=== PATIENT | male | born 1955 | race African-American/Black ===

== ENCOUNTER 2018-04-28 10:18 | Emergency (ER) | payer OTHER ==
[~2018-04-28] VITALS: Ht 167.6 cm; Wt 73.0 kg
[~2018-04-28 10:18] MED LIST: ALBU18HF2 INH; ASPI-1158 PO; BUSP5TAB3 PO; FOLI-43 PO; HYDR12.529 PO; LORA10TA7 PO; METO-293 PO; NAPR-681 PO; OMEP40CA34 PO; PROM12.511 PO; TIOT18CA3 PO
[2018-04-28 10:26] VITALS: BP 148/95
== END 2018-04-28 17:59 | disposition left against medical advice (07) ==
LOC: ER 14:46
DX: Z53.21 Procedure and treatment not carried out due to patient leaving prior to being seen by health care provider (principal)

== ENCOUNTER 2018-06-24 18:55 | Emergency (ER) | payer OTHER ==
[~2018-06-24] VITALS: Ht 170.2 cm; Wt 75.0 kg
[2018-06-24] MEDS ORDERED: ALBUTEROL (0.083%) 2.5MG/3ML NEB HHN STA (19:23)
[2018-06-24] MEDS ORDERED: SODIUM CHLORIDE 0.9% 1,000 ML IV ONE (19:23)
[2018-06-24] MEDS ORDERED: IPRATROPIUM BROMIDE (0.02%) 0.5MG/2.5ML NEB HHN STA (19:23)
[2018-06-24] MEDS ORDERED: ONDANSETRON HCL 4MG/2ML INJ IV ONE (19:30)
[2018-06-24 20:21] LABS: HEMATOCRIT. 44.6 % (42.0-52.0); HEMOGLOBIN. 15.7 g/dL (14.0-18.0); MEAN CORPUSCULAR HEMOGLOBIN 31.1 pg (28.0-32.0); MEAN CORPUSCULAR VOLUME 88.7 fL (80.0-94.0); MEAN PLATELET VOLUME 8.3 fl (7.4-10.4); PLATELET 92 x1000/uL (130-400); RED BLOOD CELL COUNT 5.03 mill/uL (4.7-6.1); RED CELL DISTRIBUTION WIDTH 13.1 % (11.6-14.6)
[2018-06-24 20:22] LABS: CHLORIDE 101 mEq/L (98-107)
[2018-06-24 20:26] LABS: ETHANOL BLOOD < 10 mg/dL
[2018-06-24 20:41] LABS: NUCLEATED RED BLOOD CELLS 1 /100 WBC; PLATELET ESTIMATE DECREASED
[2018-06-24 21:20] VITALS: BP 156/89
== END 2018-06-24 21:22 | disposition home or self-care (01) ==
LOC: ER 19:02
DX: J06.9 Acute upper respiratory infection, unspecified (principal); R11.10 Vomiting, unspecified; F17.200 Nicotine dependence, unspecified, uncomplicated; K21.9 Gastro-esophageal reflux disease without esophagitis; Z79.82 Long term (current) use of aspirin; Z79.899 Other long term (current) drug therapy
CPT/HCPCS: 36415; 71045; 80053; 83605; 83690; 83880; 84484; 85025; 87804; 93005; 94640; 96361; 96374; 99284; 99406; G0482; J2405; J7030; J7611

== ENCOUNTER 2018-06-26 18:04 | Emergency (ER) | payer OTHER ==
[~2018-06-26] VITALS: Ht 175.3 cm; Wt 71.0 kg
[2018-06-26] MEDS ORDERED: ALBUTEROL (0.083%) 2.5MG/3ML NEB HHN STA (18:48)
[2018-06-26] MEDS ORDERED: PREDNISONE 20MG TABLET PO STA (18:48)
[2018-06-26] MEDS ORDERED: IPRATROPIUM BROMIDE (0.02%) 0.5MG/2.5ML NEB HHN STA (18:48)
[2018-06-26 21:26] LABS: HEMATOCRIT. 43.4 % (42.0-52.0); MEAN CORPUSCULAR HEMOGLOBIN 30.5 pg (28.0-32.0); MEAN CORPUSCULAR VOLUME 88.1 fL (80.0-94.0); PLATELET 88 x1000/uL (130-400); RED BLOOD CELL COUNT 4.92 mill/uL (4.7-6.1); RED CELL DISTRIBUTION WIDTH 13.5 % (11.6-14.6)
[2018-06-26 21:48] LABS: PLATELET ESTIMATE DECREASED
[2018-06-27] VITALS: BP 143/83
== END 2018-06-27 00:04 | disposition home or self-care (01) ==
LOC: ER 18:04
DX: J20.9 Acute bronchitis, unspecified (principal); J44.9 Chronic obstructive pulmonary disease, unspecified; I50.9 Heart failure, unspecified; Z79.82 Long term (current) use of aspirin; Z79.899 Other long term (current) drug therapy
CPT/HCPCS: 36415; 71045; 83605; 83880; 84145; 84484; 85025; 87040; 93005; 99284; J7512

== ENCOUNTER 2018-06-27 22:59 | Emergency (ER) | payer OTHER ==
[~2018-06-27] VITALS: Ht 175.3 cm; Wt 66.0 kg
[2018-06-28] MEDS ORDERED: CHLORPROMAZINE HCL 25 MG TABLET PO ONE (01:00)
[2018-06-28 01:45] LABS: BASOPHILS % 0.5 % (0.0-2.0); HEMATOCRIT. 41.5 % (42.0-52.0); HEMOGLOBIN. 14.8 g/dL (14.0-18.0); LYMPHOCYTES % 15.4 % (20.0-50.0); MEAN CORPUSCULAR HEMOGLOBIN 31.3 pg (28.0-32.0); MEAN CORPUSCULAR VOLUME 87.7 fL (80.0-94.0); MEAN PLATELET VOLUME 7.9 fl (7.4-10.4); NEUTROPHILS % 73.1 % (40.0-76.0); PLATELET 140 x1000/uL (130-400); RED BLOOD CELL COUNT 4.74 mill/uL (4.7-6.1); RED CELL DISTRIBUTION WIDTH 13.2 % (11.6-14.6)
[2018-06-28 01:50] LABS: CHLORIDE 99 mEq/L (98-107)
[2018-06-28 05:36] VITALS: BP 122/74
== END 2018-06-28 05:49 | disposition home or self-care (01) ==
LOC: ER 22:59
DX: J02.8 Acute pharyngitis due to other specified organisms (principal); R06.6 Hiccough; I50.9 Heart failure, unspecified; J44.9 Chronic obstructive pulmonary disease, unspecified; Z79.82 Long term (current) use of aspirin
CPT/HCPCS: 36415; 71045; 83880; 84484; 93005; 99284; Q0161

== ENCOUNTER 2018-06-30 21:26 | Inpatient (IN) | payer OTHER ==
[~2018-06-30] VITALS: Ht 170.2 cm; Wt 68.2 kg
[2018-06-30] MEDS ORDERED: METHYLPREDNISOLONE SOD SUCC 125 MG/2 ML VIAL IV STA (21:31)
[2018-06-30] MEDS ORDERED: MAGNESIUM 2 G PREMIX 50 ML IV ONE (21:45)
[2018-06-30] MEDS ORDERED: LEVOFLOXACIN 750MG PREMIX 150 ML IV ONE (21:45)
[2018-06-30] MEDS ORDERED: IPRATROPIUM/ALBUTEROL 0.5-3(2.5)MG/3ML NEB HHN ONE (21:45)
[2018-06-30 22:47] LABS: BG BASE EXCESS -1.3 mmol/L (-2.0-2.0); BG BILEVEL POS AIRWAY PRESSURE 15/5; BG CARBOXYHEMOGLOBIN 2.6 % (0.5-1.5); BG DEOXYHEMOGLOBIN 0.4 % (0.0-5.0); BG FRACTION INSPIRED OXYGEN 100; BG HCO3 ACT 22.9 mmol/L (22.0-26.0); BG METHEMOGLOBIN 0.5 % (0.0-1.5); BG OXYGEN SATURATION 99.6 % (92.0-98.5); BG OXYHEMOGLOBIN 96.5 % (94.0-97.0); BG PCO2 36.9 mmHg (35.0-45.0); BG PO2 564.2 mmHg (75.0-100.0); BG SAMPLE SITE RIGHT BRACHIAL; BG TOTAL HEMOGLOBIN 15.9 g/dL (12.0-18.0); BG VENT MODE MASK - BIPAP
[2018-07-01] VITALS (11 sets, daily range): BP systolic 112–136; BP diastolic 67–81
[2018-07-01] LABS: BASOPHILS % 0.5 % (0.0-2.0); EOSINOPHILS % 1.6 % (0.0-5.0); HEMOGLOBIN. 15.8 g/dL (14.0-18.0); LYMPHOCYTES % 13.1 % (20.0-50.0); MEAN CORPUSCULAR HEMOGLOBIN 30.7 pg (28.0-32.0); MEAN CORPUSCULAR VOLUME 89.6 fL (80.0-94.0); MEAN PLATELET VOLUME 7.4 fl (7.4-10.4); MONOCYTES % 3.9 % (2.0-8.0); NEUTROPHILS % 80.9 % (40.0-76.0); PLATELET 191 x1000/uL (130-400); RED BLOOD CELL COUNT 5.14 mill/uL (4.7-6.1)
[2018-07-01 00:09] LABS: CHLORIDE 99 mEq/L (98-107)
[2018-07-01 00:11] LABS: INR 1.1; PARTIAL THROMBOPLASTIN TIME 26.7 sec (23.4-31.0); PROTHROMBIN TIME 10.6 sec (9.1-11.1)
[2018-07-01 00:13] LABS: ETHANOL BLOOD < 10 mg/dL
[2018-07-01] MEDS ORDERED: HYDROCODONE/ACETAMINOPHEN 10/325MG TABLET PO PRN ×2 (02:30→02:45)
[2018-07-01] MEDS ORDERED: NA PHOS,M-B/NA PHOS,DI-BA ENEMA 118ML PR PRN ×2 (02:30→02:45)
[2018-07-01] MEDS ORDERED: GUAIFENESIN 200MG/10ML SUGAR FREE UDC PO PRN ×2 (02:30→02:45)
[2018-07-01] MEDS ORDERED: DOCUSATE SODIUM 100MG CAPSULE PO PRN ×2 (02:30→02:45)
[2018-07-01] MEDS ORDERED: ENOXAPARIN 40MG/0.4ML SYR SUBCUT SCH (02:30)
[2018-07-01] MEDS ORDERED: ACETAMINOPHEN 325MG TABLET PO PRN ×2 (02:30→02:45)
[2018-07-01] MEDS ORDERED: MORPHINE SULFATE 2 MG/ML CPJ (NOT FOR IM USE) IV PRN (02:30)
[2018-07-01] MEDS ORDERED: LEVOFLOXACIN 500MG PREMIX 100 ML IV SCH ×3 (02:30→23:00)
[2018-07-01] MEDS ORDERED: ONDANSETRON HCL 4MG/2ML INJ IV PRN ×2 (02:30→02:45)
[2018-07-01] MEDS ORDERED: METHYLPREDNISOLONE SOD SUCC 125 MG/2 ML VIAL IV SCH (02:30)
[2018-07-01] MEDS ORDERED: CLONIDINE 0.1MG TABLET PO PRN ×2 (02:30→02:45)
[2018-07-01] MEDS ORDERED: MAGNESIUM/ALUMINUM HYDROXIDE/SIMETHICONE 30ML UDC PO PRN ×2 (02:30→02:45)
[2018-07-01] MEDS ORDERED: IPRATROPIUM/ALBUTEROL 0.5-3(2.5)MG/3ML NEB INH PRN ×2 (02:30→02:45)
[2018-07-01] MEDS ORDERED: LORAZEPAM 2MG/ML CPJ IV PRN ×2 (02:30→02:45)
[2018-07-01] MEDS ORDERED: MORPHINE SULFATE 10MG/5ML ORAL SOLN UDC PO PRN (02:45)
[2018-07-01] MEDS: METHYLPREDNISOLONE SOD SUCC 125 MG/2 ML VIAL IV SCH ×4 (06:00→23:03)
[2018-07-01] MEDS ORDERED: FUROSEMIDE 40MG/4ML VIAL IV SCH (09:00)
[2018-07-01] MEDS ORDERED: ASPIRIN 81MG EC TABLET PO SCH (09:00)
[2018-07-01] MEDS: ASPIRIN 81MG EC TABLET PO SCH (09:19)
[2018-07-01] MEDS: ENOXAPARIN 40MG/0.4ML SYR SUBCUT SCH (09:20)
[2018-07-01] MEDS: FUROSEMIDE 40MG/4ML VIAL IV SCH (09:20)
[2018-07-01 09:45] LABS: CHLORIDE 100 mEq/L (98-107)
[2018-07-01] MEDS: AMLODIPINE 2.5MG TABLET PO SCH (20:35)
[2018-07-02] VITALS (7 sets, daily range): BP systolic 109–134; BP diastolic 57–77
[2018-07-02] MEDS: METHYLPREDNISOLONE SOD SUCC 125 MG/2 ML VIAL IV SCH (05:25)
[2018-07-02 06:59] LABS: HEMATOCRIT. 42.6 % (42.0-52.0); HEMOGLOBIN. 14.5 g/dL (14.0-18.0); MEAN CORPUSCULAR HEMOGLOBIN 30.2 pg (28.0-32.0); MEAN CORPUSCULAR VOLUME 88.4 fL (80.0-94.0); MEAN PLATELET VOLUME 8.1 fl (7.4-10.4); PLATELET 269 x1000/uL (130-400); RED BLOOD CELL COUNT 4.82 mill/uL (4.7-6.1); RED CELL DISTRIBUTION WIDTH 13.1 % (11.6-14.6)
[2018-07-02 07:13] LABS: CHLORIDE 98 mEq/L (98-107)
[2018-07-02 07:25] LABS: CREATINE KINASE 46 IU/L (39-308)
[2018-07-02 07:27] LABS: CREATINE KINASE MB FRACTION 1.2 ng/mL (0.5-3.6)
[2018-07-02 07:31] LABS: LDL CHOLESTEROL 102 mg/dL (5-100)
[2018-07-02 07:38] LABS: HDL CHOLESTEROL 49 mg/dL (40-59)
[2018-07-02] MEDS: ENOXAPARIN 40MG/0.4ML SYR SUBCUT SCH (08:59)
[2018-07-02] MEDS: FUROSEMIDE 40MG/4ML VIAL IV SCH (08:59)
[2018-07-02] MEDS: ASPIRIN 81MG EC TABLET PO SCH (09:00)
[2018-07-02] MEDS: AMLODIPINE 2.5MG TABLET PO SCH (09:01)
[2018-07-02 13:34] LABS: PLATELET ESTIMATE NORMAL
== END 2018-07-02 13:20 | disposition home or self-care (01) | DRG 140 ==
LOC: ER 21:26 → 3WST 07-01 01:51 → EDBEDREQ 07-01 01:53 → EDBEDREQSVC 07-01 01:53 → ENRESERV 07-01 02:04 → ER 07-01 02:32
PROVIDERS: ADMIT Internal Medicine; ATTEND Internal Medicine
PROC: 5A09357 Assistance with Respiratory Ventilation, Less than 24 Consecutive Hours, Continuous Positive Airway Pressure (ICD-10-PCS; 2018-06-30)
PROC: 5A09357 Assistance with Respiratory Ventilation, Less than 24 Consecutive Hours, Continuous Positive Airway Pressure (ICD-10-PCS; principal; 2018-07-01)
DX: J44.0 Chronic obstructive pulmonary disease with (acute) lower respiratory infection (principal); J96.00 Acute respiratory failure, unspecified whether with hypoxia or hypercapnia; J69.0 Pneumonitis due to inhalation of food and vomit; J20.9 Acute bronchitis, unspecified; E87.6 Hypokalemia; F10.10 Alcohol abuse, uncomplicated; F17.210 Nicotine dependence, cigarettes, uncomplicated; I10 Essential (primary) hypertension; I25.10 Atherosclerotic heart disease of native coronary artery without angina pectoris; J44.1 Chronic obstructive pulmonary disease with (acute) exacerbation; I70.0 Atherosclerosis of aorta
CPT/HCPCS: 36415; 36600; 71045; 80048; 80061; 82375; 82550; 82553; 82805; 83605; 83735; 83880; 84443; 84484; 85379; 93005; 93306; 94640; 94660; 96365; 96366; 96368; 96375; 99291; G0482; J1650; J1940; J1956; J2930; J3475; J7050; J7620

== ENCOUNTER 2018-07-29 13:58 | Emergency (ER) | payer OTHER ==
[~2018-07-29] VITALS: Ht 170.2 cm; Wt 70.0 kg
[2018-07-29 14:03] VITALS: BP 146/86
== END 2018-07-29 17:40 | disposition left against medical advice (07) ==
LOC: ER 14:36
DX: R05 Cough (principal); Z53.21 Procedure and treatment not carried out due to patient leaving prior to being seen by health care provider

== ENCOUNTER 2019-05-04 13:40 | Inpatient (IN) | payer MEDICARE, OTHER ==
[~2019-05-04] VITALS: Ht 167.6 cm; Wt 73.2 kg
[~2019-05-04 13:40] MED LIST changes: -PROM12.511 PO; +PROM12.513 PO
[2019-05-04] MEDS ORDERED: ACETAMINOPHEN 325MG TABLET PO STA (14:14)
[2019-05-04] MEDS ORDERED: SODIUM CHLORIDE 0.9% 1000ML BAG (SEPSIS BOLUS) IV ONE (14:15)
[2019-05-04] MEDS ORDERED: VANCOMYCIN 1 G PREMIX 200 ML IV ONE (14:15)
[2019-05-04] MEDS ORDERED: PIPERACILLIN/TAZ 3.375G PREMIX 50 ML IV ONE (14:15)
[2019-05-04 15:13] LABS: HEMATOCRIT. 45.2 % (42.0-52.0); HEMOGLOBIN. 15.7 g/dL (14.0-18.0); MEAN CORPUSCULAR HEMOGLOBIN 31.3 pg (28.0-32.0); MEAN CORPUSCULAR VOLUME 90.4 fL (80.0-94.0); MEAN PLATELET VOLUME 8.5 fl (7.4-10.4); PLATELET 54 x1000/uL (130-400); RED CELL DISTRIBUTION WIDTH 12.8 % (11.6-14.6)
[2019-05-04 15:15] LABS: CHLORIDE 103 mEq/L (98-107); PROTHROMBIN TIME 10.7 sec (9.6-11.0)
[2019-05-04 15:52] LABS: PLATELET ESTIMATE DECREASED
[2019-05-04 16:44] LABS: CLARITY URINE CLEAR (CLEAR); COLOR URINE YELLOW (YELLOW); KETONES URINE TRACE (NEGATIVE); LEUKOCYTE ESTERASE URINE NEGATIVE (NEGATIVE); NITRITE URINE NEGATIVE (NEGATIVE); OCCULT BLOOD URINE NEGATIVE (NEGATIVE); PROTEIN URINE NEGATIVE (NEGATIVE); SPECIFIC GRAVITY URINE 1.027 (1.005-1.030)
[2019-05-04] MEDS ORDERED: IBUPROFEN 400MG TABLET PO ONE (18:15)
[2019-05-04] MEDS ORDERED: ACETAMINOPHEN 325MG TABLET PO PRN (22:45)
[2019-05-04] MEDS ORDERED: NA PHOS,M-B/NA PHOS,DI-BA ENEMA 118ML PR PRN (22:45)
[2019-05-04] MEDS ORDERED: GUAIFENESIN 200MG/10ML SUGAR FREE UDC PO PRN (22:45)
[2019-05-04] MEDS ORDERED: DIPHENHYDRAMINE 50MG/ML VIAL IV PRN (22:45)
[2019-05-04] MEDS ORDERED: CLONIDINE 0.1MG TABLET PO PRN (22:45)
[2019-05-04] MEDS ORDERED: LORAZEPAM 2MG/ML CPJ IV PRN (22:45)
[2019-05-04] MEDS ORDERED: DEXTROSE 50% WATER 50ML SYRINGE IV PRN (22:45)
[2019-05-04] MEDS ORDERED: ENOXAPARIN 40MG/0.4ML SYR SUBCUT SCH (22:45)
[2019-05-04] MEDS ORDERED: ONDANSETRON HCL 4MG/2ML INJ IV PRN (22:45)
[2019-05-04] MEDS ORDERED: IPRATROPIUM/ALBUTEROL 0.5-3(2.5)MG/3ML NEB HHN PRN (22:45)
[2019-05-04] MEDS ORDERED: MAGNESIUM/ALUMINUM HYDROXIDE/SIMETHICONE 30ML UDC PO PRN (22:45)
[2019-05-04] MEDS ORDERED: HYDRALAZINE 20MG/ML VIAL IV PRN (22:45)
[2019-05-04] MEDS ORDERED: DOCUSATE SODIUM 100MG CAPSULE PO PRN (22:45)
[2019-05-04 23:00] VITALS: BP 119/66
[2019-05-04] MEDS ORDERED: HYDR200T35 PO (23:04)
[2019-05-04] MEDS ORDERED: ERGO2000 PO (23:04)
[2019-05-04] MEDS ORDERED: HYDR4CRE2 TP (23:04)
[2019-05-04] MEDS ORDERED: LOSA25TA26 PO (23:04)
[2019-05-04] MEDS ORDERED: DICL25TA2 PO (23:04)
[2019-05-04] MEDS ORDERED: PYRI50CA PO (23:04)
[2019-05-04 23:28] VITALS: BP 119/66
[2019-05-05] MEDS: HYDROCODONE/ACETAMINOPHEN 10/325MG TABLET PO PRN ×2 (00:22→21:08)
[2019-05-05] MEDS: SODIUM CHLORIDE 0.45% 1,000 ML IV SCH ×2 (00:23→17:46)
[2019-05-05 00:57] VITALS: BP 144/89
[2019-05-05] MEDS ORDERED: LEVOFLOXACIN 500MG PREMIX 100 ML IV NR (01:00)
[2019-05-05] MEDS: IPRATROPIUM/ALBUTEROL 0.5-3(2.5)MG/3ML NEB HHN SCH ×3 (02:56→21:28)
[2019-05-05] MEDS: MORPHINE SULFATE 2 MG/ML CPJ (NOT FOR IM USE) IV PRN ×2 (03:48→11:23)
[2019-05-05 04:00] VITALS: BP 140/63
[2019-05-05] MEDS: SODIUM CHLORIDE 0.9% INJ 3ML FLUSH IVF SCH ×2 (05:17→13:40)
[2019-05-05 05:41] LABS: HEMATOCRIT. 41.1 % (42.0-52.0); HEMOGLOBIN. 14.3 g/dL (14.0-18.0); MEAN CORPUSCULAR HEMOGLOBIN 31.7 pg (28.0-32.0); MEAN PLATELET VOLUME 8.4 fl (7.4-10.4); PLATELET 54 x1000/uL (130-400); RED BLOOD CELL COUNT 4.52 mill/uL (4.7-6.1); RED CELL DISTRIBUTION WIDTH 12.4 % (11.6-14.6)
[2019-05-05 07:01] LABS: CHLORIDE 105 mEq/L (98-107)
[2019-05-05 07:09] LABS: HDL CHOLESTEROL 43 mg/dL (40-59); LDL CHOLESTEROL 82 mg/dL (5-100)
[2019-05-05 07:10] LABS: CREATINE KINASE 162 IU/L (39-308)
[2019-05-05 07:13] LABS: CREATINE KINASE MB FRACTION 1.1 ng/mL (0.5-3.6)
[2019-05-05 08:00] VITALS: BP 158/85
[2019-05-05 09:52] LABS: *AMPHETAMINES SCREEN URINE NEGATIVE (NEGATIVE); *BARBITURATES SCREEN URINE NEGATIVE (NEGATIVE); *BENZODIAZEPINES SCREEN URINE NEGATIVE (NEGATIVE); *COCAINE SCREEN URINE PRESUMTIVE POSITIVE (NEGATIVE)
[2019-05-05 09:53] LABS: CANNABINOID URINE SCREEN NEGATIVE (NEGATIVE); METHADONE URINE SCREEN NEGATIVE (NEGATIVE); OPIATES URINE SCREEN NEGATIVE (NEGATIVE); PHENCYCLIDINE URINE SCREEN NEGATIVE (NEGATIVE)
[2019-05-05 10:37] LABS: PLATELET ESTIMATE DECREASED
[2019-05-05 12:00] VITALS: BP 138/80
[2019-05-05 16:00] VITALS: BP 129/72
[2019-05-05 17:36] LABS: CREATINE KINASE 214 IU/L (39-308)
[2019-05-05 17:37] LABS: CREATINE KINASE MB FRACTION 1.5 ng/mL (0.5-3.6)
[2019-05-05 20:00] VITALS: BP 114/59
[2019-05-06] VITALS: BP 118/67
[2019-05-06] MEDS: SODIUM CHLORIDE 0.9% INJ 3ML FLUSH IVF SCH (00:46)
[2019-05-06] MEDS ORDERED: LEVOFLOXACIN 250MG PREMIX 50 ML IV SCH (01:00)
[2019-05-06] MEDS: IPRATROPIUM/ALBUTEROL 0.5-3(2.5)MG/3ML NEB HHN SCH (02:38)
[2019-05-06 04:00] VITALS: BP 133/68
[2019-05-06] MEDS ORDERED: NICOTINE 14MG PATCH TD SCH (09:00)
[2019-05-06] MEDS ORDERED: THIAMINE HCL 100MG TABLET PO SCH (09:00)
[2019-05-06] MEDS ORDERED: FOLIC ACID 1MG TABLET PO SCH (09:00)
[2019-05-06] MEDS ORDERED: MULTIVITAMINS,THER W-MINERALS TABLET PO SCH (09:00)
== END 2019-05-06 08:00 | disposition left against medical advice (07) | DRG 918 ==
LOC: ER 13:40 → 6WST 17:12 → EDBEDREQTM 17:15 → EDBEDREQ 17:15 → ENRESERV 21:27
PROVIDERS: ADMIT Internal Medicine; ATTEND Internal Medicine
DX: T40.5X1A Poisoning by cocaine, accidental (unintentional), initial encounter (principal); J68.0 Bronchitis and pneumonitis due to chemicals, gases, fumes and vapors; G93.40 Encephalopathy, unspecified; R50.9 Fever, unspecified; F17.210 Nicotine dependence, cigarettes, uncomplicated; F10.10 Alcohol abuse, uncomplicated; R07.89 Other chest pain; K52.9 Noninfective gastroenteritis and colitis, unspecified; Z79.899 Other long term (current) drug therapy; Z79.82 Long term (current) use of aspirin; Y92.89 Other specified places as the place of occurrence of the external cause
CPT/HCPCS: 36415; 71045; 74176; 80061; 80305; 80320; 81003; 82140; 82550; 82553; 83605; 83880; 84145; 84484; 87804; 93005; 93970; 94640; 99291; J1956; J2270; J2405; J2543; J3370; J7030; J7620; G0480

== ENCOUNTER 2023-01-27 09:58 | Emergency (ER) | payer OTHER, MEDICAID ==
[~2023-01-27] VITALS: Ht 182.9 cm; Wt 84.0 kg
[~2023-01-27 09:58] MED LIST changes: +ALBU6.7H3 INH; -ASPI-1158 PO; +DICL25TA10 PO; +ERGO2000 PO; -HYDR12.529 PO; +HYDR200T35 PO; +HYDR4CRE2 TP; +LOSA25TA26 PO; -METO-293 PO; -NAPR-681 PO; +OMEP40CA20 PO; -OMEP40CA34 PO; +PRED10TA MT; -PROM12.513 PO; +PYRI50CA PO
[2023-01-27 09:59] VITALS: O2SAT 94
[2023-01-27] MEDS ORDERED: MECLIZINE 25MG TABLET PO ONE (10:30)
[2023-01-27] MEDS: ONDANSETRON HCL 4MG/2ML INJ IV ONE ×2 (10:30→11:09)
[2023-01-27] MEDS: MORPHINE SULFATE 4 MG/ML CPJ (NOT FOR IM USE) IV ONE ×2 (11:09→11:37)
[2023-01-27 11:24] LABS: BASOPHILS % 0.6 % (0.0-2.0); EOSINOPHILS % 7.4 % (0.0-5.0); HEMATOCRIT. 43.3 % (42.0-52.0); HEMOGLOBIN. 15.1 g/dL (14.0-18.0); LYMPHOCYTES % 15.5 % (20.0-50.0); MEAN CORPUSCULAR HEMOGLOBIN 30.8 pg (28.0-32.0); MEAN CORPUSCULAR VOLUME 88.3 fL (80.0-94.0); MONOCYTES % 11.4 % (2.0-8.0); NEUTROPHILS % 65.1 % (40.0-76.0); RED CELL DISTRIBUTION WIDTH 13.4 % (11.6-14.6)
[2023-01-27 11:37] LABS: CHLORIDE 111 mEq/L (98-107)
[2023-01-27 11:47] LABS: ETHANOL BLOOD < 10 mg/dL (-10)
[2023-01-27 12:00] LABS: PLATELET 49 x1000/uL (130-400)
[2023-01-27 12:01] LABS: PLATELET ESTIMATE MARKEDLY DECREASED
[2023-01-27] MEDS ORDERED: MECLIZINE 12.5MG TABLET PO NR (15:15)
[2023-01-27 15:40] LABS: *AMPHETAMINES SCREEN URINE NEGATIVE (NEGATIVE); *BARBITURATES SCREEN URINE NEGATIVE (NEGATIVE); *BENZODIAZEPINES SCREEN URINE NEGATIVE (NEGATIVE); *COCAINE SCREEN URINE PRESUMTIVE POSITIVE (NEGATIVE); CANNABINOID URINE SCREEN NEGATIVE (NEGATIVE); METHADONE URINE SCREEN NEGATIVE (NEGATIVE); OPIATES URINE SCREEN PRESUMTIVE POSITIVE (NEGATIVE); PHENCYCLIDINE URINE SCREEN NEGATIVE (NEGATIVE)
[2023-01-27 17:18] VITALS: BP 150/86; PULSE 74; RESP 23; TEMP 98.6
[2023-01-27] MEDS ORDERED: IOHEXOL-350 100 ML BOTTLE ONE (21:18)
== END 2023-01-27 18:23 | disposition short-term general hospital (02) ==
LOC: ER 10:01 → CANBEDREQ 20:05
DX: R07.89 Other chest pain (principal); R42 Dizziness and giddiness; D69.6 Thrombocytopenia, unspecified; J45.909 Unspecified asthma, uncomplicated; J44.9 Chronic obstructive pulmonary disease, unspecified; E11.9 Type 2 diabetes mellitus without complications; K21.9 Gastro-esophageal reflux disease without esophagitis; I10 Essential (primary) hypertension; Z79.899 Other long term (current) drug therapy; Z20.822 Contact with and (suspected) exposure to COVID-19
CPT/HCPCS: 80053; 80305; 80320; 83880; 85025; 84484; 36415; 71045; 70496; 70498; 93005; 96374; 96375; 99285; 87426; Q9967; J8597; J2405; J2270; C9803; G0480